=== PATIENT | female | born 1965 | race Caucasian/White ===

== ENCOUNTER 2025-06-29 12:42 | Emergency (ER) | payer BC, SELFPAY ==
[2025-06-29 12:46] VITALS: BP 212/118; PULSE 83; RESP 16; TEMP 38.4; O2SAT 99; BMI 23.8
--- NOTE | 2025-06-29 13:23 | ED.GENADULT ---
HPI - General Adult General Chief complaint: Skin/Abscess/Foreign Body Stated complaint: Infected cyst Time Seen by Provider: 06/29/25 13:12 History of Present Illness HPI narrative: patient has a cyst on the lower sternum of chest that is red with margins outside the marked area. seen a provider placed UC at [place] started Keflex on Wednesday night so taken 4 doses 500mg. has noted drainage of crusty and some green liquid coming out. was running a low-grade fever of 99.3 degrees orally. concerned needs IV ABO. 59-year-old woman presenting to the emergency room with concern of an infection in her low chest. Has had swelling in this area for quite some time. Seen 2 days ago in urgent care and placed on antibiotics, cephalexin, add referred to Dermatology. Explained that concern expressed apparently by provider that infection might be more significant and pericardiac/in deeper chest spaces and infection might require IV antibiotics once there was some drainage today. No fever. Kandace expresses concern over proposed procedure during my recommendations noting that she thinks she might have an intolerance or allergy to lidocaine or at least that is ineffective. Did have a right-sided breast procedure that was attempted to be done, anesthetized with diphenhydramine, which was unsuccessful and quite painful. Related Data Home Medications ?Medication ?Instructions ?Recorded ?Confirmed albuterol 90 mcg/actuation aerosol 1 - 2 mcg inhalation PRN 06/29/25 inhaler cetirizine 10 mg chewable tablet 5 mg PO DAILY 06/29/25 06/29/25 (Zyrtec) cholecalciferol (vitamin D3) 50 2,000 unit PO DAILY 06/29/25 06/29/25 mcg (2,000 unit) capsule singular 10 mg PO DAILY 06/29/25 06/29/25 Previous Rx's ?Medication ?Instructions ?Recorded clindamycin HCl 300 mg capsule 300 mg PO TID #15 caps 07/01/25 Allergies Allergy/AdvReac Type Severity Reaction Status Date / Time doxycycline Allergy Severe skin rash Verified 06/29/25 13:06 smooth, burned, streak like cut and bleedins adhesive Allergy Mild rash, skin Verified 06/29/25 13:06 irritation Sulfa (Sulfonamide Allergy Mild rash, hives Verified 06/29/25 13:06 Antibiotics) lidocaine Allergy Unknown had a Verified 06/29/25 13:06 reaction to all medicaton given, hives hydrocodone Allergy hives Verified 06/29/25 13:06 latex Allergy hives, Verified 06/29/25 13:06 redness, metrondizale Allergy Mild rash, Uncoded 06/29/25 13:06 hives, and thrush Review of Systems Status of ROS: Reports: 6 or more systems reviewed and unremarkable except as noted in History and below [facility] Social History Smoking Status: Current some day smoker How often do you have a drink containing alcohol: 4 or more times a week How many standard drinks containing alcohol do you have on a typical day: 1 or 2 AUDIT-C Alcohol total score: 4 Non-prescribed substance use: denies use Exam Narrative: Exam Narrative: Pleasant. NAD. Mildly anxious I think but calm. Breathing easily. Heart in regular rate and rhythm. Examination of area in question at the distal aspect of the sternum/supra xiphoid area there is a small patch of erythema measuring maximal dimension of approximately 4 cm. It has expanded about a cm from hotline apparently placed 2 days ago. Is located between upper aspect of breasts. There is a 1/2 cm central pale cystic structure. About 3 in above that in the sternum just a little right of center is another small firm swelling measuring 1.5 cm in maximum dimension Const: Vital Signs, click to edit/add: Vital Signs - 24 hr 06/29/25 12:46 Temperature 101.1 F H Pulse Rate [Pulse Oximeter] 83 Respiratory Rate 16 Blood Pressure [Ri ght Upper Arm] 212/118 H Pulse Oximetry 99 Oxygen Delivery Me thod Room Air Documenting provider has reviewed patient's vital signs: yes Course Vital Signs Vital signs: Initial Vital Signs Temperature 101.1 F H 06/29/25 12:46 Temperature Source Temporal Artery Scan 06/29/25 12:46 Pulse Rate 83 06/29/25 12:46 Respiratory Rate 16 06/29/25 12:46 Blood Pressure 212/118 H 06/29/25 12:46 Blood Pressure Mean 149 H 06/29/25 12:46 Blood Pressure Position Sitting 06/29/25 12:46 Pulse Oximetry 99 06/29/25 12:46 Oxygen Delivery Method Room Air 06/29/25 12:46 Vital Signs Temperature 101.1 F H 06/29/25 12:46 Pulse Rate 83 06/29/25 12:46 Respiratory Rate 16 06/29/25 12:46 Blood Pressure 212/118 H 06/29/25 12:46 Pulse Oximetry 99 06/29/25 12:46 Oxygen Delivery Method Room Air 06/29/25 12:46 Temperature 98.2 F 06/29/25 14:09 Pulse Rate 82 06/29/25 16:40 Respiratory Rate 16 06/29/25 16:40 Blood Pressure 178/90 H 06/29/25 16:40 Pulse Oximetry 96 06/29/25 16:40 Oxygen Delivery Method Room Air 06/29/25 16:40 Medications Administered Medications: Discontinued Medications Generic Name Dose Route Start Last Admin Trade Name Freq PRN Reason Stop Dose Admin Bupivacaine HCl 10 ml 06/29/25 16:34 06/29/25 16:52 Bupivacaine 0.25% 30 Ml INJECTION 06/29/25 16:35 10 ml ONCE ONE Administration Lidocaine/Epinephrine 5 ml 06/29/25 16:34 06/29/25 16:52 Lidocaine 1%-Epi 1:100,000 INFILTRATI 06/29/25 16:35 5 ml ONCE ONE Administration Medical Decision Making MDM Narrative Medical decision making narrative: Temperature measured here initially at 101.1? but re checked shortly after at 98 something. Did not feel febrile on exam. This would have changed workup I think if had been febrile. In this case I would focus on treatment, excision of the sebaceous cyst. We did spend some time discussing allergies and options for care. I do think that the erythema surrounding the lower likely sebaceous cyst is more inflammatory or very localized cellulitic reaction and not something that necessarily needs antibiotics. I&D I think is most important. Informed consent obtained for excision of likely small abscess associated with sebaceous cyst over the lower sternum. Also she would like the apparent sebaceous cyst in the mid sternum resected as well. Informed consent obtained here as well. Placed a test does of Sensorcaine superior to the xiphoid area cyst. This did not result in unusual reaction. Further injected the area fanning with more bupivacaine. Did not achieve excellent anesthesia so proceeded to inject lidocaine as well. Still difficult which might be simply due to inflammatory changes and challenges of abscess. Some anesthesia was achieved. Injected lidocaine in the upper sebaceous cyst for anesthetic. This was well anesthetized. Together we decided to proceed with I&D of the lower cyst. Cleansed area with Betadine. Horizontal incision made of approximately 1 cm. Would have made larger but this cut was not fully anesthetized. Able to squeeze out small amount of purulent material and then ultimately probably just shy of a quarter-sized sphere of sebaceous material and cyst capsule. Only blood ultimately obtained. Packed lightly with quarter-inch iodoform gauze. Antibiotic ointment and fluffed up gauze placed. Similar was done to the upper sebaceous cyst. Cleansed with Betadine. Incised a diagonal incision consistent with lines of Laurie. A little over 1 cm incision was made and was able to express broken capsule full of sebaceous material. I believe I got all of the capsule here. Pressured to expressing what appeared to be only blood. Both wounds were irrigated with normal saline. The upper sebaceous cyst that was not clearly infected; this wound was sutured with 5 0 Ethilon. Three sutures placed. Wound culture pending. See patient discharge plan for further discussion Sutures out in 7 days. Okay to get wet but avoid soaking while sutures are in. Okay to continue cephalexin. Watch for spreading redness after 2 days, marked increase in pain or swelling, purulent drainage. Can pull out 2 inches of wick every day until gone. Change dressing as soaked if needed. Otherwise change daily with a little antibiotic ointment. A wound culture is pending here and we will call you if any changes need to be made. Discharge Plan Discharge Clinical Impression: Sebaceous cyst, Abscess Patient Disposition: Home, Self-Care Condition: Improved Additional Instructions: Sutures out in 7 days. Okay to get wet but avoid soaking while sutures are in. Okay to continue cephalexin. Watch for spreading redness after 2 days, marked increase in pain or swelling, purulent drainage. Can pull out 2 inches of wick every day until gone. Change dressing as soaked if needed. Otherwise change daily with a little antibiotic ointment. A wound culture is pending here and we will call you if any changes need to be made. Prescriptions: New clindamycin HCl 300 mg capsule 300 mg PO TID Qty: 15 0RF No Action cholecalciferol (vitamin D3) 50 mcg (2,000 unit) capsule 2,000 unit PO DAILY singular 10 mg PO DAILY albuterol 90 mcg/actuation aerosol 1 - 2 mcg inhalation PRN cetirizine [Zyrtec] 10 mg tablet,chewable 5 mg PO DAILY Follow Up/Referrals: Provider,Not a Local [Primary Care Provider, Family Practice] Stand Alone Forms: [employer] Info Instructions
[2025-06-29 13:42] VITALS: TEMP 38.5
--- OUTSIDE RECORDS SUMMARY | 2025-06-29 13:50 | XMS_ITS | Clinical Summary ---
Author Organization [facility] Address [address] [place] [address] Care Team Providers Care Director Of Digital Marketing Name Role Phone Lu Alarcon MD Primary Care Provider + Allergies Active Allergy Reactions Criticality Noted Date Comments Nitroimidazoles Hives,Rash,Thrush 12/26/2013 Sulfa (Sulfonamide Antibiotics) Rash 11/30 Medications multivitamin (MULTIPLE VITAMINS) tablet Take 1 tablet by mouth once daily. 0 4 Active cholecalciferol (VITAMIN D-3) 2,000 unit capsule Take 1 capsule by mouth once daily. 0 5 Active fluticasone (50 mcg per actuation) nasal solution (FLONASE)Indicat ions:Allergic rhinitis, unspecified seasonality, unspecified trigger Inhale 1 [place] into both nostrils once daily. 48 g 11 8 Active sulindac (CLINORIL) 150 mg tabletIndication s:Rib pain on left side Take 1 tablet by mouth 2 times daily with meals. 14 tablet 09/14/2018 1:22 PM CDT 8 Active Active Problems Problem Noted Date Diagnosed Date HTN (hypertension) 06/19/2016 Chronic abdominal pain 12/02/2015 Tobacco use disorder, continuous Immunizations Immunization Administration Dates Next Due Influenza, IIV4 12/02/2015 Tdap 11/29/2008 Family History Medical History Relation Name Comments Hypertension Brother Good Health Daughter Hyperlipidemia Father Coronary artery disease Maternal Grandfather Good Health Mother Psychiatric illness Sister Asthma Son Good Health Son Cancer-breast No Family History Relation Name Status Comments Brother Daughter Father Maternal Grandfather Mother Sister Son Social History Tobacco Use Types Packs/Day Years Used Date Smoking Tobacco: Every Day Cigarettes 0.5 20 Smokeless Tobacco: Never Tobacco Cessation:Ready to Q uit: No; Counseling Given: Yes Comments:social Alcohol Use Standard Drinks/Week Comments Yes 0 (1 standard drink = 0.6 oz pur e alcohol) social PHQ-2 Answer Date Recorded PHQ-2 Score 0 01/29/2019 Comments No Sex and Gender Information Value Date Recorded Sex Assigned at Not on file 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 Gender Identity Not on file Sexual Orientation Not on file Obstetrics History Last Filed Vital Signs Vital Sign Reading Time Taken Comments Blood Pressure 122/78 09/14/2018 12:22 PM CDT Pulse 85 09/14/2018 12:22 PM CDT Temperature 36.9 C (98.5 F) 09/14/2018 12:22 PM CDT Respiratory Rate 16 11/13/2015 1:15 PM MAILING SPECIALIST Oxygen Saturation 99% 09/14/2018 12:22 PM CDT Inhaled Oxygen Concentration - - Weight 65.8 kg (145 lb) 09/14/2018 12:22 PM CDT Height 160.5 cm (5' 3.19) 09/14/2018 12:22 PM C DT Body Mass Index 25.53 09/14/2018 12:22 PM CDT Plan of Treatment Health Maintenance Due Date Last Done Comments HIV for age 15-65 1982 Hepatitis C screening for ag e 18-79 1985 Hepatitis B series for 19+ ( 1 of 3 - 19+ 3-dose series) 1986 Colonoscopy through age 75 2012 Mammogram for age 45-75 08/15/2016 08/15/2015, 02/01 Lipids for age 45-75 04/01/2017 04/01/2012 (Completed outside of [facility]) Pneumococcal series for age 50+ (1 of 1 - PCV) 2017 Zoster (shingles) series for age 50+ (1 of 2) 2017 Pap test for age 21-65 02/25/2018 5 (Completed outside of [facility]), 04/01/2012 (Completed outside of [facility]) Tetanus booster 11/29/2018 11/29/2008 BMI (ht and wt on same day) for age 18+ 09/14/2019 09/14/2018, 01/21/2017, 06/19/2016, Additional history exists Depression screening for age 12+ 09/14/2019 09/14/2018, 09/14/2018, 09/14/2018, Additional history exists COVID-19 vaccine series ( season) 2024 Influenza Vaccine (#1) 2025 12/02/2015 Procedures Procedure Name Priority Date/Time Associated Diagnosis Comments XR MAMMO UNI DIAG FFDM RIGHT (IA) Routine 08/15/2015 10:27 AM CDT Lump or mass in breast from Last 3 Months or Most Recently Relevant to Health Maintenance Results * XR MAMMO UNI DIAG FFDM RIGHT (08/15/2015 10:27 AM CDT) Anatomical Region Laterality Modality BREASTS, Breast Right Right Other 08/15/2015 10:0 9 AM CDT Impressions 08/15/2015 10:42 AM CDT Impression: The palpable lump in the right breast is a simple cyst. No evidence of malignancy. Recommendation: Resume routine screening mammography, at her home clinic, next due in January 2016. The patient was provided with the results and recommendations at the completion of the examination. ACR 2: Benign Finding(s). The patient will receive a lay language report of this examination. Narrative 08/15/2015 10:42 AM CDT Clinical History: This 50-year-old female presents with a palpable lump near the right nipple at the 9:00 position, first noticed on 07/29/2015. She describes this as slightly tender and about the size of a pea. Comparison: 02/01/2015, 10/08/2009 Breast Density: Heterogeneously dense, which may obscure small masses. Family History: Breast: None. Ovarian: None. RIGHT Digital Diagnostic Mammogram Findings: A diagnostic right mammogram was performed. No definite mass is identified near the site of the reported palpable lump. Breast tissue is moderately dense. No spiculation, architectural distortion or abnormal calcification. This study was evaluated with the assistance of Computer-Aided Detection. RIGHT Breast Ultrasound Findings: Ultrasound evaluation of the right breast was performed. In the right breast at the 9:00, retroareolar location, corresponding to the patient's palpable lump, there is a round simple cyst which measures 11 x 10 x 9 mm. Surrounding tissue is hyperechoic indicating fibrous type tissue. No evidence for mass or acoustic shadowing. Clinical History: This 50-year-old female presents with a palpable lump near the right nipple at the 9:00 position, first noticed on 07/29/2015. She describes this as slightly tender and about the size of a pea. Comparison: 02/01/2015, 10/08/2009 Breast Density: Heterogeneously dense, which may obscure small masses. Family History: Breast: None. Ovarian: None. RIGHT Digital Diagnostic Mammogram Findings: A diagnostic right mammogram was performed. No definite mass is identified near the site of the reported palpable lump. Breast tissue is moderately dense. No spiculation, architectural distortion or abnormal calcification. This study was evaluated with the assistance of Computer-Aided Detection. RIGHT Breast Ultrasound Findings: Ultrasound evaluation of the right breast was performed. In the right breast at the 9:00, retroareolar location, corresponding to the patient's palpable lump, there is a round simple cyst which measures 11 x 10 x 9 mm. Surrounding tissue is hyperechoic indicating fibrous type tissue. No evidence for mass or acoustic shadowing. Procedure Note Lexus Marcum MD - 08/15/2015 Clinical History: This 50-year-old female presents with a palpable lump near the right nipple at the 9:00 position, first noticed on 07/29/2015. She describes this as slightly tender and about the size of a pea. Comparison: 02/01/2015, 10/08/2009 Breast Density: Heterogeneously dense, which may obscure small masses. Family History: Breast: None. Ovarian: None. RIGHT Digital Diagnostic Mammogram Findings: A diagnostic right mammogram was performed. No definite mass is identified near the site of the reported palpable lump. Breast tissue is moderately dense. No spiculation, architectural distortion or abnormal calcification. This study was evaluated with the assistance of Computer-Aided Detection. RIGHT Breast Ultrasound Findings: Ultrasound evaluation of the right breast was performed. In the right breast at the 9:00, retroareolar location, corresponding to the patient's palpable lump, there is a round simple cyst which measures 11 x 10 x 9 mm. Surrounding tissue is hyperechoic indicating fibrous type tissue. No evidence for mass or acoustic shadowing. Clinical History: This 50-year-old female presents with a palpable lump near the right nipple at the 9:00 position, first noticed on 07/29/2015. She describes this as slightly tender and about the size of a pea. Comparison: 02/01/2015, 10/08/2009 Breast Density: Heterogeneously dense, which may obscure small masses. Family History: Breast: None. Ovarian: None. RIGHT Digital Diagnostic Mammogram Findings: A diagnostic right mammogram was performed. No definite mass is identified near the site of the reported palpable lump. Breast tissue is moderately dense. No spiculation, architectural distortion or abnormal calcification. This study was evaluated with the assistance of Computer-Aided Detection. RIGHT Breast Ultrasound Findings: Ultrasound evaluation of the right breast was performed. In the right breast at the 9:00, retroareolar location, corresponding to the patient's palpable lump, there is a round simple cyst which measures 11 x 10 x 9 mm. Surrounding tissue is hyperechoic indicating fibrous type tissue. No evidence for mass or acoustic shadowing. IMPRESSION: Impression: The palpable lump in the right breast is a simple cyst. No evidence of malignancy. Recommendation: Resume routine screening mammography, at her home clinic, next due in January 2016. The patient was provided with the results and recommendations at the completion of the examination. ACR 2: Benign Finding(s). The patient will receive a lay language report of this examination. Magali Ascencio MD MAMMO Edited Resul t - Final from Last 3 Months or Most Recently Relevant to Health Maintenance Insurance [facility] Care Teams Director Of Digital Marketing Relationship Specialty Start Date End Date Lu Alarcon MD PCP - General Family Practice 09/14/18
[2025-06-29 14:08] VITALS: TEMP 36.8
[2025-06-29 14:09] VITALS: TEMP 36.8
[2025-06-29 14:20] VITALS: BP 193/108
[2025-06-29 16:40] VITALS: BP 178/90; PULSE 82; RESP 16; O2SAT 96
[2025-06-29] MEDS: BUPIVACAINE 0.25% 30 ML 10 ML INJECTION (16:52)
[2025-06-29] MEDS: LIDOCAINE 1%-EPI 1:100,000 5 ML INFILTRATI (16:52)
== END 2025-06-29 16:53 | disposition home or self-care (01) ==
PROVIDERS: Emergency Provider Family Medicine
DX: L72.3 Sebaceous cyst (principal); L02.91 Cutaneous abscess, unspecified
CPT/HCPCS: 10060; 87070; 87186; 99283; 99284; J0665